=== PATIENT | female | born 1960 | race Caucasian/White ===

== ENCOUNTER → 2018-11-17 | Outpatient (CLI) | payer BC ==
[~2018-11-17] MED LIST: NITROGLYCERIN AEROSOL (4.9 GM)
[2018-11-17] MEDS: IOHEXOL 100 ML (10:45)
[2018-11-17] MEDS: SOD CHLORIDE 0.9% 100 ML (10:46)
== END | disposition home or self-care (01) ==
LOC: C/S 08:36
DX: I25.10 Atherosclerotic heart disease of native coronary artery without angina pectoris (principal)
CPT/HCPCS: 75571; 75571-59; 75574